=== PATIENT | male | born 1965 | race Caucasian/White ===

== ENCOUNTER 2020-08-23 22:04 | Emergency (ER) | payer OTHER ==
[~2020-08-23] VITALS: Ht 175.3 cm; Wt 82.6 kg
[2020-08-23] MEDS ORDERED: HUMALOG100 UNIT/2 SQ (22:20)
[2020-08-23] MEDS ORDERED: HYDROCHLOROTH12.5 MG PO (22:21)
[2020-08-23] MEDS ORDERED: ATORVASTATIN CA10 MG PO (22:21)
[2020-08-23] MEDS ORDERED: AZOR 5-40 MG T1 EACH PO (22:21)
== END 2020-08-23 23:47 | disposition home or self-care (01) ==
LOC: ER 22:04
DX: S90.02XA Contusion of left ankle, initial encounter (principal); S70.02XA Contusion of left hip, initial encounter; S80.02XA Contusion of left knee, initial encounter; V49.9XXA Car occupant (driver) (passenger) injured in unspecified traffic accident, initial encounter; Y93.89 Activity, other specified; Y92.488 Other paved roadways as the place of occurrence of the external cause; Y99.8 Other external cause status

== ENCOUNTER 2020-12-29 15:14 | Outpatient (CLI) | payer OTHER ==
[~2020-12-29 15:14] MED LIST: ATORVASTATIN CA10 MG PO; AZOR 5-40 MG T1 EACH PO; HUMALOG100 UNIT/2 SQ; HYDROCHLOROTH12.5 MG PO
== END 2020-12-29 15:26 | disposition home or self-care (01) ==
LOC: RAD 15:14
PROVIDERS: ATTEND Physical Medicine & Rehabilitation
DX: S93.492A Sprain of other ligament of left ankle, initial encounter (principal)

== ENCOUNTER 2021-08-11 08:00 | Outpatient (CLI) | payer OTHER | END 2021-08-11 08:30 | disposition home or self-care (01) | LOC: PPH VACUNA 08:00 | PROVIDERS: ATTEND Emergency Medicine Pediatric Emergency Medicine | DX: Z23 Encounter for immunization (principal) ==

== ENCOUNTER 2022-02-05 08:00 | Outpatient (CLI) | payer OTHER | END 2022-02-05 08:30 | disposition home or self-care (01) | LOC: PPH VACUNA 08:00 | PROVIDERS: ATTEND Emergency Medicine Pediatric Emergency Medicine | DX: Z23 Encounter for immunization (principal) ==

== ENCOUNTER 2022-08-06 13:57 | Outpatient (CLI) | payer OTHER | END 2022-08-06 14:02 | disposition home or self-care (01) | LOC: PPH VACUNA 13:57 | PROVIDERS: ATTEND Emergency Medicine Pediatric Emergency Medicine | DX: Z23 Encounter for immunization (principal) ==

== ENCOUNTER 2023-05-26 10:40 | Outpatient (CLI) | payer OTHER | END 2023-05-26 10:56 | disposition home or self-care (01) | LOC: SONOGRAMA 10:40 | PROVIDERS: ATTEND Physical Medicine & Rehabilitation | DX: M77.12 Lateral epicondylitis, left elbow (principal) ==

== ENCOUNTER 2024-09-06 12:46 | Outpatient (CLI) | payer OTHER | END 2024-09-06 12:53 | disposition home or self-care (01) | LOC: RAD 12:46 | PROVIDERS: ATTEND Physical Medicine & Rehabilitation | DX: M17.12 Unilateral primary osteoarthritis, left knee (principal); M25.562 Pain in left knee ==

== ENCOUNTER 2025-02-08 09:42 | Outpatient (CLI) | payer OTHER | END 2025-02-08 09:43 | disposition home or self-care (01) | LOC: NUCLEAR 09:42 | PROVIDERS: ATTEND Physical Medicine & Rehabilitation | DX: I73.9 Peripheral vascular disease, unspecified (principal); Q27.39 Arteriovenous malformation, other site ==

== ENCOUNTER → 2025-02-11 11:10 | Outpatient (CLI) | payer OTHER | END | disposition home or self-care (01) | LOC: NUCLEAR 01-29 08:00 | PROVIDERS: ATTEND Physical Medicine & Rehabilitation | DX: I70.223 Atherosclerosis of native arteries of extremities with rest pain, bilateral legs (principal) ==